=== PATIENT | female | born 1950 | race African-American/Black ===

== ENCOUNTER 2017-07-01 08:02 | Outpatient (RCR) | payer MEDICARE, OTHER | END 2017-07-02 | disposition home or self-care (01) | LOC: PTY 08:02 | DX: M51.37 Other intervertebral disc degeneration, lumbosacral region (principal) | CPT/HCPCS: 97110; 97162; G8978; G8979 ==

== ENCOUNTER 2017-07-09 08:00 | Outpatient (RCR) | payer MEDICARE, OTHER | END 2017-08-01 | disposition home or self-care (01) | LOC: PTY 08:00 | DX: M51.37 Other intervertebral disc degeneration, lumbosacral region (principal); M12.9 Arthropathy, unspecified; M54.9 Dorsalgia, unspecified ==

== ENCOUNTER 2017-08-12 10:00 | Outpatient (RCR) | payer MEDICARE, OTHER | END 2017-09-01 | disposition home or self-care (01) | LOC: PTY 10:00 | DX: M51.37 Other intervertebral disc degeneration, lumbosacral region (principal); M12.9 Arthropathy, unspecified; M54.9 Dorsalgia, unspecified ==